=== PATIENT | female | born 1995 | race Asian ===

== ENCOUNTER 2020-06-29 01:16 | Emergency (ER) | payer OTHER ==
[~2020-06-29] VITALS: Ht 160 cm; Wt 76.2 kg
[2020-06-29 01:35] VITALS: BP 148/85
[2020-06-29] MEDS ORDERED: Bacitracin Oint UD TOPIC ONE (02:02)
[2020-06-29 02:10] VITALS: BP 135/78
--- NOTE | 2020-06-29 02:39 | Emergency Room Report ---
History of Present Illness General Chief Complaint: Laceration Source: Patient Present Illness HPI Disclaimer: Please note that this report is being documented using [employer] technology. This can lead to erroneous entry secondary to incorrect interpretation by the dictating instrument. HPI: 24-year-old female presents with laceration to the left index finger. 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 She denies any other injuries at this time. Pain in the fingers worse with palpation and movement. 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 Patient History Last Menstrual Period: CONTROL Now: No : 0 Para: 0 Reviewed Nursing Documentation: PMH: Agreed; PSxH: Agreed Review of Systems All Other Systems: negative except mentioned in HPI Physical Exam Vital Signs Date Time Temp Pulse Resp B/P (MAP) Pulse Ox O2 Delivery O2 Flow Rate FiO2 06/29/20 01:24 98.8 82 20 148/85 (106) 99 06/29/20 01:35 Room Air Sp02 EP Interpretation: reviewed, normal General Appearance: well appearing, no apparent distress Head: normocephalic, atraumatic Eyes: bilateral eye PERRL, bilateral eye EOMI ENT: hearing grossly normal, moist mucus membranes Neck: full range of motion, supple Respiratory: lungs clear, normal breath sounds, no rhonchi, no respiratory distress, no retraction, no wheezing Cardiovascular #1: normal peripheral pulses, regular rate, rhythm, no murmur Gastrointestinal: non tender, soft, non-distended, no guarding Musculoskeletal: other - Full range of motion of left index finger, mildly swollen with laceration noted. Sensation and capillary refill intact Neurologic: alert, oriented x3, no focal defects Skin: normal color, warm/dry, other - 1 cm laceration to the left index finger Procedures Laceration/Wound Repair Laceration/Wound Repair : Consent: Verbal Wound Location: upper extremity Wound Explored: clean Anesthesia: 1% Lidocaine Wound Repaired With: sutures Suture Size/Type: 5:0 Patient Tolerated: Well Complications: None Medical Decision Making Diagnostic Impression: Primary Impression: Laceration of left index finger ER Course Patient presented with laceration of the left index finger. Repaired by me. Patient had full range of motion of finger. Low suspicion for serious neurovascular injury or tendon injury. Patient discharged home with wound care instructions, return precautions, and follow-up in 1 week for suture removal Last Vital Signs Date Time Temp Pulse Resp B/P (MAP) Pulse Ox O2 Delivery O2 Flow Rate FiO2 06/29/20 01:35 98.8 85 20 148/85 99 Room Air Disposition: HOME, SELF-CARE Condition: Improved Referrals: NOT CHOSEN IPA/,REFERRING (PCP) Patient Instructions: Laceration Care, Adult Additional Instructions: Please return in 1 week for suture removal. Return sooner for any worsening symptoms or concerns. Jah Brown M.D. Jun 29, 2020 02:39
== END 2020-06-29 02:25 | disposition home or self-care (01) ==
LOC: EMR 02:25
DX: S61.211A Laceration without foreign body of left index finger without damage to nail, initial encounter (principal); W45.8XXA Other foreign body or object entering through skin, initial encounter; Y93.9 Activity, unspecified; Y92.9 Unspecified place or not applicable
CPT/HCPCS: 99283

== ENCOUNTER 2020-07-06 20:26 | Emergency (ER) | payer OTHER ==
[~2020-07-06] VITALS: Ht 160 cm; Wt 76.2 kg
--- NOTE | 2020-07-06 20:55 | Emergency Room Report ---
History of Present Illness General Chief Complaint: Wound Recheck/Suture Removal Source: Patient Present Illness HPI Disclaimer: Please note that this report is being documented using [employer] technology. This can lead to erroneous entry secondary to incorrect interpretation by the dictating instrument. HPI: 24-year-old female presents for evaluation of suture removal. She is seen in the emergency department 7 days ago for laceration of the left index finger. 2 stitches were placed. She has been wearing a splint since then. No reinjury. Denies swelling, purulence or wound dehiscence. No other issues reported. 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 EOMI. Resp: Normal work of breathing Skin: Intact. No abrasions, laceration or rash over the exposed skin MSK: Laceration over the volar aspect of the left index finger well approximated. Neuro: Awake and alert. Mentating appropriately Medical Decision Making Diagnostic Impression: Primary Impression: Encounter for removal of sutures ER Course 24-year-old female presents for wound reevaluation and suture removal. Sutures removed without complication. No evidence of infection. Wound is closed and well-healed. Stable for outpatient follow-up. Return as needed. Last Vital Signs Date Time Temp Pulse Resp B/P (MAP) Pulse Ox O2 Delivery O2 Flow Rate FiO2 07/06/20 20:31 98.6 77 18 137/92 (107) 99 Disposition: HOME, SELF-CARE Condition: Stable Referrals: [facility]. [facility] Patient Instructions: Wound Check Additional Instructions: Please follow-up with your primary care doctor in the next 1 to 3 days to discuss this emergency department visit and for reevaluation. If you have any new or worsening symptoms please return to the emergency department for reevaluation. Please note that this report is being documented using [employer] technology. This can lead to erroneous entry secondary to incorrect interpretation by the dictating instrument. Faiazn Martin MD Jul 06, 2020 20:55
[2020-07-06 20:59] VITALS: BP 137/92
== END 2020-07-06 21:00 | disposition home or self-care (01) ==
LOC: EMR 20:50
DX: Z48.02 Encounter for removal of sutures (principal); S61.211D Laceration without foreign body of left index finger without damage to nail, subsequent encounter; X58.XXXD Exposure to other specified factors, subsequent encounter
CPT/HCPCS: 99281